=== PATIENT | female | born 1965 | race Caucasian/White ===

== ENCOUNTER 2020-01-22 12:36 | Emergency (ER) | payer OTHER, SELFPAY ==
[2020-01-22 13:40] VITALS: BP 136/72; PULSE 75; RESP 20; TEMP 36.9; O2SAT 98
--- NOTE | 2020-01-22 15:06 | ED.GENADULT ---
HPI - General Adult General Chief complaint: Upper Respiratory Infection Stated complaint: flu test for work Time Seen by Provider: 01/22/20 15:06 Source: patient and RN notes reviewed Mode of arrival: ambulatory Limitations: no limitations History of Present Illness HPI narrative: 54-year-old female with complaints of upper respiratory infection symptoms, cough. Florence says she was at work today and ate a granola bar, which went down the esophagus wrong causing her to cough uncontrollable. Ivette job sen her out to [facility] to be evaluated. Rhinorrhea and nasal congestion. No exacerbating factors. No high fevers or intermittent chills. No nausea, vomiting, and abdominal pain. Denies chest pain, dyspnea, coughing up blood, difficulty swallowing, jaw pain, dental pain, facial pain, foreign body sensation, and rash. Denies being , LPM hysterectomy. Remains active. Some parts of this dictation were generated by voice recognition software and may contain typographical and/or grammatical inaccuracies. Related Data Home Medications Medication Instructions Recorded Confirmed fluoxetine 20 mg PO DAILY 01/22/20 01/22/20 lisinopril 20 mg PO DAILY 01/22/20 01/22/20 montelukast [Singulair] 10 mg PO HS 01/22/20 01/22/20 Allergies Allergy/AdvReac Type Severity Reaction Status Date / Time nitrofurantoin Allergy Swelling Verified 01/22/20 14:27 [From Macrobid] Review of Systems Review of Systems: Narrative: CONSTITUTIONAL: Denies fever, chills, sweats. EYES: Denies visual changes, redness, discharge. ENT: Complains of rhinorrhea, congestion. Denies sore throat, otalgia. CARDIOVASCULAR: Denies chest pain, palpitations, edema. RESPIRATORY: Denies dyspnea, wheezing. Complains of dry cough. GASTROINTESTINAL: Denies abdominal pain, nausea, vomiting, diarrhea. GENITOURINARY: Denies dysuria, hematuria, abnormal discharge. SKIN: Denies rash or itching. MUSCULOSKELETAL: Denies acute back pain, joint pain, myalgia. NEUROLOGIC: Denies numbness or focal weakness. PSYCHIATRIC: Denies anxiety or depression. All systems reviewed & are unremarkable except as noted in HPI and below. [facility] Past Medical History Medical History (Updated 01/28/20 @ 15:00 by JEEVAN Wynn) Allergies Asthma Hypertension Surgical History Surgical History (Updated 01/22/20 @ 15:16 by JEEVAN Wynn) History of arthroscopic knee surgery Right knee History of hysterectomy History of knee surgery Left knee repair History of removal of cyst Tailbone Family History Family History (Updated 01/22/20 @ 15:17 by JEEVAN Wynn) Mother Cancer Father Cancer Bladder Heart disease Social History Social History (Updated 01/22/20 @ 15:19 by JEEVAN Wynn) Smoking status: Former smoker Second hand tobacco smoke exposure: No (Ivette says she stopped smoking 13 years ago) Alcohol intake: current Alcohol use details: Occasional Substance use: never Living arrangements: with family Occupation/Education: occupation Gender identity (if verbalized by the patient): Female Comments At time of signature, agree with nurse past medical, surgical, social, and family history. There is no relevant family history pertinent to the presenting complaint. Exam Narrative: Exam Narrative: GENERAL: This is a well-nourished, well-developed patient, in no apparent distress. Speaks in full sentences and ambulates with steady gait without dyspnea. HEAD: normocephalic, atraumatic. EYES: PERRL. Sclera clear/white. Vision is grossly intact. Prior to irrigation, cerumen impaction, post irrigation by this provider, now able to visualize TM, totally. TMs adame with good cone of light, no erythema or suppuration. tolerated procedure well. No complications. EARS: Pinna is normal shape and contour. Clear external auditory canals. LT TM pearly adame with good cone of lig
== END 2020-01-22 15:34 | disposition home or self-care (01) ==
PROVIDERS: Emergency Provider Nurse Practitioner Family
DX: R05 Cough (principal); H61.23 Impacted cerumen, bilateral; Z87.891 Personal history of nicotine dependence; J45.909 Unspecified asthma, uncomplicated; I10 Essential (primary) hypertension
CPT/HCPCS: 69210; 87804; 99202; G0463

== ENCOUNTER 2021-11-11 11:13 | Emergency (ER) | payer OTHER, SELFPAY ==
[2021-11-11 11:58] VITALS: BP 132/70; PULSE 77; RESP 18; TEMP 37; O2SAT 99
--- NOTE | 2021-11-11 12:47 | ED.URI ---
HPI - URI/Sore Throat General Chief Complaint: Upper Respiratory Infection Stated Complaint: Cough/Chest Conestion Time Seen by Provider: 11/11/21 12:47 Source: patient, RN notes reviewed and old records reviewed Mode of arrival: ambulatory Limitations: no limitations History of Present Illness HPI Narrative: 56-year-old presents to the [facility] with complaints of cough and congestion for the last 5 days. Had been taken [id number] products such as TheraFlu [place] and Tylenol. Had been using her inhaler but denies shortness of breath, chest pain, abdominal pain or fever Related Data Home Medications Medication Instructions Recorded Confirmed fluoxetine 20 mg PO DAILY 01/22/20 11/11/21 lisinopril 20 mg PO DAILY 01/22/20 11/11/21 montelukast [Singulair] 10 mg PO HS 01/22/20 11/11/21 Allergies Allergy/AdvReac Type Severity Reaction Status Date / Time nitrofurantoin Allergy Swelling Verified 11/11/21 12:23 [From Macrobid] Review of Systems Review of Systems: All systems reviewed & are unremarkable except as noted in HPI and below Constitutional: Constitutional: Reports no additional constitutional complaints, Denies chills and Denies fever(s) Eyes: Eyes: Reports no additional eye complaints Cardiovascular: Cardiovascular: Denies chest pain Respiratory: Respiratory: Reports as per HPI, Reports chest congestion and Reports cough Gastrointestinal: Gastrointestinal: Reports no additional gastrointestinal complaints, Denies abdominal pain, Denies diarrhea, Denies nausea and Denies vomiting Musculoskeletal: Musculoskeletal: Reports no additional musculoskeletal complaints Integumentary/Breasts: Skin/Breast: Reports system reviewed and no additional complaints, except as docu Neurologic: Reports system reviewed and no additional complaints, except as documented Psychiatric: Psychiatric: Reports no additional psychiatric complaints Allergic/Immunologic: Allergic/Immunologic: Reports no additional allergic/immunologic complaints [facility] Past Medical History Medical History Allergies Asthma Hypertension Surgical History Surgical History History of arthroscopic knee surgery Right knee History of hysterectomy History of knee surgery Left knee repair History of removal of cyst Tailbone Family History Family History Mother Cancer Father Cancer Bladder Heart disease Social History Social History Smoking status: Former smoker Second hand tobacco smoke exposure: No (Ivette says she stopped smoking 13 years ago) Alcohol intake: current Alcohol use details: Occasional Substance use: never Gender identity (if verbalized by the patient): Female Comments At the time of my signature, I reviewed and agree with the nursing past medical, surgical, social, and family history. There is no relevant family history pertinent to the patient complaint. Exam Const: General: no acute distress and alert Orientation/consciousness: patient oriented x3 HENMT: Ears: external ears normal and Abnormal EAC present excessive cerumen bilateral Eyes: Pupils: Equal, round and reactive pupils present Chest: Chest palpation & inspection: normal inspection of the chest Resp: Effort & Inspection: normal respiratory effort Other: Strong dry cough noted Cardio: Rate: regular rate Rhythm: regular rhythm Back/Spine/Pelvis: Back: no CVA tenderness Skin: General skin exam: normal color Rashes: no rashes Wounds: no wounds Neuro: General: patient oriented x3, moves all extremities, no meningeal signs and no focal motor deficits Speech: normal speech Gait exam (Neuro): Normal gait present Extrem: General: normal to inspection Psych: Appearance: grossly normal and well kempt Ment
== END 2021-11-11 13:08 | disposition home or self-care (01) ==
PROVIDERS: Emergency Provider Nurse Practitioner; PCP Family Medicine
DX: J40 Bronchitis, not specified as acute or chronic (principal); F17.200 Nicotine dependence, unspecified, uncomplicated; J45.909 Unspecified asthma, uncomplicated; I10 Essential (primary) hypertension
CPT/HCPCS: 87804; 99213; G0463

== ENCOUNTER 2025-10-29 09:17 | Outpatient (CLI) | payer OTHER, SELFPAY ==
--- NOTE | ~2025-10-29 | MR_ITS ---
EXAMINATION: MR lumbar spine wo con DATE: 10/29/2025 09:49 INDICATION: Degenerative lumbar disc. Low back pain. TECHNIQUE: Magnetic resonance imaging (MRI) of the lumbar spine was performed without intravenous contrast. COMPARISON: None FINDINGS: There is 3 mm anterolisthesis of L5 on S1. Vertebral body heights are normal. There is severely decreased disc height at T11-T12, mildly decreased disc height at L3-L4 and L4-L5, and severely decreased disc height at L5-S1. The distal spinal cord signal intensity is normal. The conus medullaris is at L1. The following disc levels are specifically discussed: L1-L2: The disc does not extend beyond the endplate margin. There is mild bilateral facet joint osteoarthritis. There is no neural foraminal stenosis. There is no central canal stenosis. L2-L3: The disc does not extend beyond the endplate margin. There is moderate bilateral facet joint osteoarthritis. There is no neural foraminal stenosis. There is no central canal stenosis. L3-L4: The disc is bulging. There is severe bilateral facet joint osteoarthritis. There is mild bilateral neural foraminal stenosis. There is mild central canal stenosis. L4-L5: The disc is bulging. There is severe bilateral facet joint osteoarthritis. There is mild bilateral neural foraminal stenosis. There is mild central canal stenosis. L5-S1: The disc is bulging and has an annular fissure. There is severe bilateral facet joint osteoarthritis. There is mild bilateral neural foraminal stenosis. There is mild central canal stenosis. IMPRESSION: 1. Severe lower lumbar spondylosis. Reviewed, dictated and finalized at location E. N ART CURATOR
== END 2025-10-29 09:18 | disposition home or self-care (01) ==
LOC: MICIMG 09:17
DX: M47.816 Spondylosis without myelopathy or radiculopathy, lumbar region (principal)
CPT/HCPCS: 72148